=== PATIENT | male | born 1940 | race Caucasian/White ===

== ENCOUNTER 2021-01-28 12:13 | Emergency (ER) | payer MEDICARE ==
[~2021-01-28 12:13] MED LIST: AMLODIPINE BESYL5 MG PO; ATORVASTATIN CA80 MG PO; ECOTRIN81 MG PO; FINASTERIDE5 MG PO; LISINOPRIL20 MG PO; METFORMIN HCL1000 MG PO; METOPROLOL TART25 MG PO
[2021-01-28 13:06] LABS: HEMOGLOBIN 12.9 gm/dl (14.0-17.5); RED BLOOD COUNT 4.34 M/UL (4.20-5.50); WHITE BLOOD COUNT 4.7 K/UL (4.5-11.0)
[2021-01-28 13:30] LABS: BUN/CREATININE RATIO 15 (0-10)
== END 2021-01-28 21:10 | disposition short-term general hospital (02) ==
LOC: ER1 12:13
DX: I62.00 Nontraumatic subdural hemorrhage, unspecified (principal); R56.9 Unspecified convulsions; G93.89 Other specified disorders of brain; E11.9 Type 2 diabetes mellitus without complications; I10 Essential (primary) hypertension
CPT/HCPCS: 70450; 70553; 71045; 80053; 81001; 82550; 82553; 82962; 83735; 83874; 84484; 85025; 93005; 96374; 99285; A9577; J1953

== ENCOUNTER → 2021-04-17 | Outpatient (CLI) | payer MEDICARE | LOC: KOH-I 16:38 | DX: R06.02 Shortness of breath (principal); R91.8 Other nonspecific abnormal finding of lung field | CPT/HCPCS: 71046 ==

== ENCOUNTER 2021-09-21 12:28 | Emergency (ER) | payer MEDICARE ==
[2021-09-21 13:25] LABS: HEMOGLOBIN 9.9 gm/dl (14.0-17.5); RED BLOOD COUNT 3.18 M/UL (4.20-5.50); WHITE BLOOD COUNT 3.2 K/UL (4.5-11.0)
== END 2021-09-21 17:38 | disposition home or self-care (01) ==
LOC: ER1 12:28
PROVIDERS: Physician Assistant Medical
DX: I10 Essential (primary) hypertension (principal); R31.9 Hematuria, unspecified; R30.0 Dysuria; D64.9 Anemia, unspecified; E78.5 Hyperlipidemia, unspecified; E11.9 Type 2 diabetes mellitus without complications; Z91.041 Radiographic dye allergy status; Z95.1 Presence of aortocoronary bypass graft; Z79.899 Other long term (current) drug therapy; Z90.49 Acquired absence of other specified parts of digestive tract
CPT/HCPCS: 71045; 80053; 81001; 82550; 82553; 84484; 85025; 93005; 99284

== ENCOUNTER → 2021-09-24 | Outpatient (CLI) | payer MEDICARE | LOC: LBRF 13:11 | DX: N40.1 Benign prostatic hyperplasia with lower urinary tract symptoms (principal); N13.8 Other obstructive and reflux uropathy | CPT/HCPCS: 87086 ==

== ENCOUNTER → 2021-10-31 | Outpatient (CLI) | payer MEDICARE | LOC: KOH-I 08:08 | DX: N13.2 Hydronephrosis with renal and ureteral calculous obstruction (principal); R31.9 Hematuria, unspecified; R93.41 Abnormal radiologic findings on diagnostic imaging of renal pelvis, ureter, or bladder; K62.9 Disease of anus and rectum, unspecified; M89.9 Disorder of bone, unspecified | CPT/HCPCS: 74176 ==